=== PATIENT | male | born 1975 | race Caucasian/White ===

== ENCOUNTER → 2021-12-11 | Day surgery (SDC) | payer OTHER ==
[~2021-12-11] VITALS: Ht 182.9 cm; Wt 102.1 kg
[2021-12-11 13:01] LABS: HEMOGLOBIN 14.9 gm/dl (14.0-17.5); RED BLOOD COUNT 4.52 M/UL (4.20-5.50); WHITE BLOOD COUNT 10.4 K/UL (4.5-11.0)
[2021-12-11 15:17] LABS: BUN/CREATININE RATIO 13 (0-10)
== END | disposition home or self-care (01) ==
LOC: OR 10:30
PROVIDERS: Orthopaedic Surgery
DX: S42.301A Unspecified fracture of shaft of humerus, right arm, initial encounter for closed fracture (principal); S42.201A Unspecified fracture of upper end of right humerus, initial encounter for closed fracture; G89.18 Other acute postprocedural pain; W15.XXXA Fall from cliff, initial encounter; I10 Essential (primary) hypertension; J44.9 Chronic obstructive pulmonary disease, unspecified; Z79.899 Other long term (current) drug therapy
CPT/HCPCS: 36415; 73060; 76000; 80048; 82962; 85027; 93005; C1713; J0690; J1100; J1170; J2250; J2405; J2704; J2795; J3010